=== PATIENT | female | born 1985 | race Caucasian/White ===

== ENCOUNTER 2017-02-02 06:17 | Inpatient (IN) | payer BC ==
[~2017-02-02] VITALS: Ht 162.6 cm; Wt 90.0 kg
[~2017-02-02 06:17] MED LIST: BENTYL10 MG PO; MACROBID100 MG PO; MULTIPLE VITAM1 EACH PO; TYLENOL EXTRA500 MG PO; ULTRAM50 MG PO; VYVANSE70 MG PO; ZOFRAN ODT4 MG PO
[2017-02-02 06:53] VITALS: BP 146/89
[2017-02-02] MEDS ORDERED: MOTRIN800 MG PO (08:01)
[2017-02-02] MEDS ORDERED: PERCOCET 5/31 TABLET PO (08:01)
[2017-02-02 11:22] VITALS: BP 158/85
[2017-02-03 07:32] LABS: EOSINOPHIL (%) 0.5 % (0-5); EOSINOPHIL COUNT 0.1 K/uL (0-0.3); IMMATURE GRANULOCYTE (%) 0.4 % (0.0-0.7); INSTRUMENT ABS NEUTROPHIL CT 6.9 K/uL; LYMPHOCYTE COUNT 2.6 K/uL (1.0-2.8); MCHC 32.7 G/DL (30.0-36.0); MCV 97.9 FL (83-99); MEAN PLAT.VOLUME 11.2 uM^3 (9.5-12.4); MONOCYTE (%) 7.4 % (3-12); MONOCYTE COUNT 0.8 K/uL (0-0.8); NEUTROPHIL (%) 66.5 % (45-76); NEUTROPHIL COUNT 6.9 K/uL (1.8-6.4); PLATELET COUNT 240 K/uL (156-360); RBC DIS.WIDTH-CV 13.2 % (11.8-14.6); RBC DIS.WIDTH-SD 47.3 % (39-53); RED BLOOD COUNT 3.37 M/uL (3.80-5.20)
[2017-02-03 07:36] LABS: WHITE BLOOD COUNT 10.3 K/uL (4.1-10.2)
[2017-02-03 07:48] VITALS: BP 118/58
[2017-02-03 11:19] VITALS: BP 122/71
[2017-02-03 14:36] VITALS: BP 136/77
[2017-02-03 18:10] VITALS: BP 132/66
[2017-02-03 19:00] VITALS: BP 146/79
[2017-02-03 23:00] VITALS: BP 138/71
[2017-02-04 05:40] VITALS: BP 132/84
== END 2017-02-04 13:51 | disposition home or self-care (01) | DRG 766 ==
LOC: 2WEST 06:17 → 2SOUTH 08:42 → 2WEST 02-04 13:51
PROVIDERS: Obstetrics & Gynecology
DX: O34.211 Maternal care for low transverse scar from previous cesarean delivery (principal); O69.1XX0 Labor and delivery complicated by cord around neck, with compression, not applicable or unspecified; O99.89 Other specified diseases and conditions complicating pregnancy, childbirth and the puerperium; N90.89 Other specified noninflammatory disorders of vulva and perineum; Z37.0 Single live birth; Z3A.39 39 weeks gestation of pregnancy; O99.214 Obesity complicating childbirth; E66.9 Obesity, unspecified; Z68.34 Body mass index [BMI] 34.0-34.9, adult
CPT/HCPCS: 85025; 86850; 86900; 86901; 87081; 88305; J0690; J1100; J1170; J1200; J2274; J2405; J3010; J7120